=== PATIENT | male | born 1955 | race Caucasian/White ===

== ENCOUNTER 2023-06-12 06:19 | Day surgery (SDC) | payer MEDICARE, SELFPAY ==
[2023-06-02 08:08] VITALS: BMI 23.6
[2023-06-12] VITALS (8 sets, daily range): BP systolic 113–154; BP diastolic 62–75; BMI 23.6
[2023-06-12 12:04] LABS: Glucose - Point of Care 144 mg/dl (70-99)
[2023-06-12 13:22] LABS: Glucose - Point of Care 130 mg/dl (70-99)
[2023-06-12] MEDS: Pyridium 200 MG PO (13:39)
[2023-06-12] MEDS: DETROL LA 2 MG PO (13:39)
== END 2023-06-12 14:27 | disposition home or self-care (01) ==
LOC: SDS 06:19
PROVIDERS: ATTENDING PHYSICIAN Surgery; FAMILY PHYSICIAN Internal Medicine
DX: N28.89 Other specified disorders of kidney and ureter (principal); D41.11 Neoplasm of uncertain behavior of right renal pelvis; N40.1 Benign prostatic hyperplasia with lower urinary tract symptoms; R35.0 Frequency of micturition
CPT/HCPCS: 52332; 74018; 76000; 82962; A4300; C1758; C1769; C1894; C2617

== ENCOUNTER 2023-06-30 06:21 | Day surgery (SDC) | payer MEDICARE, SELFPAY ==
[2023-06-30] VITALS (8 sets, daily range): BP systolic 118–155; BP diastolic 63–75; BMI 22.4
[2023-06-30 11:51] LABS: Glucose - Point of Care 151 mg/dl (70-99)
[2023-06-30] MEDS: Pyridium 200 MG PO (13:06)
[2023-06-30] MEDS: DETROL LA 4 MG PO (13:06)
[2023-06-30 13:26] LABS: Glucose - Point of Care 142 mg/dl (70-99)
[2023-06-30 13:52] LABS: Urine Albumin Negative (Neg - Trace); Urine Bilirubin Negative (Negative); Urine Character Clear (Clear); Urine Color Straw; Urine Glucose Trace (Negative); Urine Ketone Negative (Negative); Urine Leukocyte Negative (Negative); Urine Nitrite Negative (Negative); Urine Occult Blood 4+ (Negative); Urine Specific Gravity 1.005 (<1.030); Urine Urobilinogen Negative (Neg - 1+)
[2023-06-30 14:10] LABS: Urine Amorphous Seen; Urine Mucus Few; Urine White Cell 0-2 /HPF (0-5)
== END 2023-06-30 14:17 | disposition home or self-care (01) ==
LOC: SDS 06:21
PROVIDERS: ATTENDING PHYSICIAN Surgery
DX: N28.89 Other specified disorders of kidney and ureter (principal)
CPT/HCPCS: 52310; 74420; 76000; 81003; 81015; 82962; A4300; C1758; C1769; C1894

== ENCOUNTER 2023-07-11 14:56 | Emergency (ER) | payer MEDICARE, SELFPAY ==
[2023-07-11 14:57] VITALS: BP 171/74
--- NOTE | 2023-07-11 16:10 | ED.GENMED ---
History of Present Illness
General
Chief Complaint: Abdominal Pain
Time Seen by Provider: 07/11/23 15:59
Travel History
Have you had any contact with someone who has COVID-19?: No
Do you have any symptoms of coronavirus? Fever > 100 degrees, chills, cough, shortness of breath, sore throat, loss of taste or smell, muscle aches, or headache?: No
History of Present Illness
History of Present Illness:
68-year-old male with history of insulin-dependent diabetes presents emergency department for evaluation of generalized abdominal pain ongoing for the past week. Denies any associated fever, chills, sweats, nausea, vomiting, or diarrhea. No
history of intra-abdominal surgeries. He does note that he had a right ureteral stent placed last month and subsequently removed earlier this month, denies any hematuria or lower urinary tract voiding symptoms
Past History
Past History
ED Past Medical History: Hypercholesterolemia and IDDM (Diabetes diagnosed )
ED Past Surgical History: None
Social History
Tobacco: Non-smoker
Personal:
Living: with family
Employment: Employed
Family History
Family History: Other (noncontributory)
Review of Systems
Review of Systems
Allergies reviewed?: Yes
All Other Systems: ROS reviewed and negative except as documented in HPI and ROS
Phy Exam
Physical Exam
Physical Exam:
GEN: Well appearing, NAD, WDWN
HEENT: Oral mucosa moist, no scleral icterus
Cardiac: Regular rate
Lung: No respiratory distress, no tachypnea
Abdomen: Soft, nondistended, diffuse tenderness to all 4 quadrants
MSK: No gross deformity or injuries
Skin: Good color, no pallor or jaundice, no rashes
Neuro: AO x3, moves all extremities freely
Psych: Calm, cooperative
Course
Orders/Labs/Results
Orders:
Orders
07/11/23 16:09
CT Abd/Pel (IV only)-[facility] only Urgent
Comment:
Reason For Exam: generalized abd pain
07/11/23 16:18
Complete Blood Count/With Diff Urgent
Comprehensive Metabolic Panel Urgent
Lipase Urgent
07/11/23 17:21
Urinalysis Reflex To Culture Urgent
Date Specimen was Collected: 07/11/23
Time Specimen was Collected: 17:19
Abnormal Lab Results
07/11/23 07/11/23
16:18 17:21
Hgb 12.0 L g/dL
(13.0-18.0)
Hct 37.5 L %
(39.0-52.0)
MCV 77.8 L fL
(80.0-94.0)
MCH 24.9 L pg
(27.0-31.0)
MCHC 32.0 L g/dL
(33.0-37.0)
RDW 15.9 H %
(11.5-14.5)
Absolute Monos (auto) 0.7 H 10^3/uL
(0.1-0.6)
Lymphocytes % 19.2 L %
(20.5-51.1)
Monocytes % 9.4 H %
(1.7-9.3)
Sodium 131 L mmol/L
(135-145)
BUN 26 H mg/dl
(9-20)
Glucose 184 H mg/dl
(70-99)
Urine Glucose 3+ A
(Negative)
07/11/23 16:18
07/11/23 16:18
Vital Signs
Initial and Last Documented VS:
Initial Vital Signs
Temp Pulse Resp BP Pulse Ox
97.8 F 92 18 171/74 96
07/11/23 14:57 07/11/23 14:57 07/11/23 14:57 07/11/23 14:57 07/11/23 14:57
Last Documented Vital Signs
Temp Pulse Resp BP Pulse Ox
97.8 F 92 18 171/74 96
07/11/23 14:57 07/11/23 14:57 07/11/23 14:57 07/11/23 14:57 07/11/23 14:57
MDM/Problems Addressed
MDM/Problems Addressed:
CT report reviewed, there are many vague findings including hepatomegaly, splenomegaly, and portacaval adenopathy. These findings are certainly concerning for potential occult malignancy however no obvious source of this is found on imaging. His
labs including white blood cell count are reassuring. Could certainly be viral in nature. Will prescribe supportive medications and advise outpatient primary care and GI follow-up for further workup of these today abnormalities. Does not require
hospitalization
*Critical Care Note
Total Time (30-74mins, 75-104mins- exclusive of procedures): Not Applicable
ED Attending Note
-
Portions of this chart may have been created with voice recognition software.� Occasional wrong word or��sound alike� substitutions may have occurred due to the inherent limitations of voice recognition software.
Discharge Plan
Departure
Patient Disposition: Home (Routine Discharge)
Date of Disposition: 07/11/23
Time of Disposition: 17:52
Patient with high blood pressure during this ER visit?: No
Discharge Problem:
Acute generalized abdominal pain
Instructions: Abdominal Pain
Prescriptions:
New
dicyclomine 20 mg tablet
20 mg PO TID PRN (Reason: abdominal pain) Qty: 20 0RF
pantoprazole [Protonix] 40 mg tablet,delayed release (DR/EC)
40 mg PO DAILY Qty: 20 0RF
No Action
aspirin [Aspir-81] 81 mg Tablet,Delayed Release (Dr/Ec)
81 mg PO DAILY
metformin 1,000 mg Tablet
1,000 mg PO BID
omega 2-ovw-yoa-fish oil [Fish Oil] 1,200 (144-216) mg Capsule
1,200 cap PO DAILY
dutasteride-tamsulosin 0.5-0.4 mg Capsule, Er Multiphase 24 Hr
1 cap PO DAILY
alogliptin 25 mg Tablet
25 mg PO DAILY
empagliflozin 25 mg Tablet
25 mg PO DAILY
insulin glargine
24 units SC DAILY
Rx Instructions:
in AM
Referrals:
Roberto Grider MD [Active] -
Koki Michel MD [Family Provider] -
Activity Restrictions/Additional Instructions:
The exact cause of your pain is not clear at this time. Your CAT scan shows you have slight enlargement of your liver and spleen as well as enlarged lymph nodes in the abdomen. The cause of this is not clear. I am prescribing you 2 medications to
see if this helps alleviate your symptoms and recommend you follow-up with your primary care physician for further discussion. You may also benefit from seeing a cable mock up assembler to further evaluate your symptoms
Interventions
Interventions:
*Risk Screen - Suicide Last Done: 07/11/23 16:46
*General Assessment Last Done: 07/11/23 16:22
*Neglect/Abuse Screening Last Done: 07/11/23 16:22
ED- Fall Risk Assessment Last Done: 07/11/23 18:27
*Nursing Disposition Last Done: 07/11/23 18:27
VR-Dplccv-Yjgtxmqpgs Assessment Last Done: 07/11/23 16:22
Discharge Date and Time
Discharge Date/Time: 07/11/23 18:27
[2023-07-11 16:20] VITALS: BMI 23.7
[2023-07-11 16:25] LABS: % Basophils 0.3 % (0-2); % Eosinophils 1.3 % (0-6); % Immature Granulocytes 0.4 % (0-0.5); % Lymphocytes 19.2 % (20.5-51.1); % Monocytes 9.4 % (1.7-9.3); % Neutrophils 69.4 % (42.2-75.2); Absolute Eosinophils 0.1 10^3/uL (0-0.7); Absolute Lymphocytes 1.4 10^3/uL (1.2-3.4); Absolute Monocytes 0.7 10^3/uL (0.1-0.6); Hematocrit 37.5 % (39.0-52.0); Mean Corpuscular Hgb 24.9 pg (27.0-31.0); Mean Corpuscular Volume 77.8 fL (80.0-94.0); Mean Platelet Volume 10.2 fL (7.4-10.4); Nucleated Red Blood Cells % 0 % (-); Platelet Count 247 10^3/uL (130-400); Red Blood Cell Count 4.82 10^6/uL (4.70-6.10); Red Cell Dist. Width 15.9 % (11.5-14.5); White Blood Cell Count 7.1 10^3/uL (4.8-10.8)
[2023-07-11 16:45] LABS: ALT (SGPT) 19 U/L (0-50); AST (SGOT) 42 U/L (17-59); Albumin 3.6 g/dl (3.5-5.0); Alkaline Phosphatase 100 U/L (38-126); Blood Urea Nitrogen 26 mg/dl (9-20); Calcium 9.3 mg/dl (8.4-10.2); Carbon Dioxide 23 mmol/L (22-30); Chloride 103 mmol/L (98-107); Estimated Creatinine Clearance 80 ml/min; Glucose 184 mg/dl (70-99); Lipase 76 U/L (23-300); Potassium 4.1 mmol/L (3.5-5.1); Sodium 131 mmol/L (135-145); Total Bilirubin 0.4 mg/dl (0.2-1.3); Total Protein 6.6 g/dl (6.3-8.2); eGFR > 60.00
[2023-07-11 17:36] LABS: Urine Albumin Negative (Neg - Trace); Urine Bilirubin Negative (Negative); Urine Character Clear (Clear); Urine Color Yellow; Urine Glucose 3+ (Negative); Urine Ketone Negative (Negative); Urine Leukocyte Negative (Negative); Urine Nitrite Negative (Negative); Urine Occult Blood Negative (Negative); Urine Specific Gravity 1.015 (<1.030); Urine Urobilinogen Negative (Neg - 1+)
== END 2023-07-11 18:27 | disposition home or self-care (01) ==
LOC: EMR 14:56
PROVIDERS: Physician Assistant; EMERGENCY PHYSICIAN Student in an Organized Health Care Education/Training Program; FAMILY PHYSICIAN Internal Medicine
DX: R10.84 Generalized abdominal pain (principal); R16.2 Hepatomegaly with splenomegaly, not elsewhere classified
CPT/HCPCS: 99285; 74177; 80053; 81003; 83690; 85025; Q9967

== ENCOUNTER → 2024-04-26 12:26 | Outpatient (REF) | payer MEDICARE, SELFPAY | LOC: MRI 3T 12:26 | PROVIDERS: ATTENDING PHYSICIAN Surgery; FAMILY PHYSICIAN Internal Medicine | DX: D41.11 Neoplasm of uncertain behavior of right renal pelvis (principal) | CPT/HCPCS: 74183; A9575 ==